=== PATIENT | male | born 1940 | race Caucasian/White ===

== ENCOUNTER 2018-06-11 13:37 | Outpatient (CLI) | payer MEDICARE ==
--- NOTE | 2018-06-11 19:32 | RAD ---
LEFT WRIST THREE VIEWS: Date: 06-11-18 FINDINGS: An old ununited fracture of the ulnar styloid was seen, but no acute fracture was evident. The distan ce between the scaphoid and lunate was excessive, suggesting scapholunate dissociation. Degenerative changes are seen between the distal pole of the sphenoid and trapezium, and to a lesser extent betwee n the trapezium and base of the first metacarpal. Arterial calcifications are present. IMPRESSION: 1. Scapholunate dissociation. 2. Old ununited ulnar styloid fracture. 3. 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 POS: HOME
--- NOTE | 2018-06-11 19:34 | RAD ---
LEFT HAND THREE VIEWS: Date: 06-11-18 FINDINGS: Degenerative changes between the scaphoid, trapezium, and first metacarpal are noted and detailed on the wrist dictation. The scapholunate dissociation is not as apparent on these views. Mild degenerati ve changes are seen in the second and third MCP joints without obvious erosions. There are some lesse r arthritic changes in the first MCP joint. No acute fractures are seen, only the old ulnar styloid f racture. IMPRESSION: 1. Degenerative changes along the scaphoid/trapezium/first metacarpal axis. 2. Degenerative changes in the first, second, and third MCP joints. POS: HOME
== END 2018-06-11 13:38 | disposition home or self-care (01) ==
LOC: BURRAD 13:37
PROVIDERS: ATTEND Family Medicine
DX: M25.532 Pain in left wrist (principal); M18.12 Unilateral primary osteoarthritis of first carpometacarpal joint, left hand; M19.042 Primary osteoarthritis, left hand; M19.032 Primary osteoarthritis, left wrist; S63.512A Sprain of carpal joint of left wrist, initial encounter; S52.612K Displaced fracture of left ulna styloid process, subsequent encounter for closed fracture with nonunion

== ENCOUNTER 2020-03-03 10:49 | Emergency (ER) | payer MEDICARE ==
[2020-03-03 11:22] LABS: #Eosinphils 0.1 thou/uL (0.0-0.7); #Monocytes 0.4 thou/uL (0.11-0.59); #Neutrophils 3.6 thou/uL (1.40-6.50); %Basophils 0.8 % (0.0-1.0); %Eosinophils 1.1 % (0.0-10.0); %Lymphocytes 19.9 % (21.0-51.0); %Neutrophils 70.2 % (42.0-75.0); Mean Corpuscular HGB CONC 32.1 g/dL (32.0-36.0); Mean Corpuscular Hemoglobin 30.4 pg (27.0-31.0); Mean Corpuscular Volume 94.8 fL (78.0-98.0); Mean Platelet Volume 7.8 fL (7.4-10.4); Platelet Count 164 thou/uL (130-400); RBC Distribution Width 12.2 % (11.5-14.5); Red Blood Cell (RBC) Count 3.63 mill/uL (4.70-6.10); White Blood Cell (WBC) Count 5.2 thou/uL (4.8-10.8)
[2020-03-03 11:30] LABS: INR-International Normal Ratio 3.7; Prothrombin Time 36.7 sec (12.0-14.7)
[2020-03-03 11:31] LABS: D-Dimer Test 0.41 *mcg/mL (0.27-0.43); PTT 64.3 sec (22.9-36.1)
[2020-03-03 11:38] LABS: ALT (SGPT) 20 U/L (8-55); AST (SGOT) 22 U/L (5-34); Albumin 4.1 g/dL (3.4-4.8); Alkaline Phosphatase 181 U/L (40-110); Anion Gap 15 mmol/L (10-20); BUN (Urea Nitrogen) 28 mg/dL (8.4-25.7); Bilirubin, Total 1.1 mg/dL (0.2-1.2); Calc. Creatinine Clearance 0 mL/min (70-130); Calcium 9.3 mg/dL (7.8-10.44); Carbon Dioxide 25 mmol/L (23-31); Chloride 102 mmol/L (98-107); Estimated GFR-MDRD 42; Globulin 2.9 g/dL (2.4-3.5); Glucose 113 mg/dL (83-110); Sodium 137 mmol/L (136-145)
[2020-03-03] MEDS ORDERED: Morphine 2 MG/ML SYRINGE ONE (11:42)
[2020-03-03] MEDS ORDERED: Ondansetron PF 4 MG/2 ML Vial ONE (11:43)
== END 2020-03-03 12:08 | disposition home or self-care (01) ==
LOC: BURERS 10:49
DX: S86.911A Strain of unspecified muscle(s) and tendon(s) at lower leg level, right leg, initial encounter (principal); I48.91 Unspecified atrial fibrillation; Z79.899 Other long term (current) drug therapy; X58.XXXA Exposure to other specified factors, initial encounter
CPT/HCPCS: 80053; 85025; 85379; 85610; 85730; 99283; J2270; J2405

== ENCOUNTER 2023-10-21 19:05 | Emergency (ER) | payer OTHER ==
[2023-10-21 19:58] LABS: #Lymphocytes 0.5 thou/uL (1.20-3.40); #Monocytes 0.1 thou/uL (0.11-0.59); #Neutrophils 4.1 thou/uL (1.40-6.50); %Basophils 0.3 % (0.0-1.0); %Eosinophils 0.2 % (0.0-10.0); %Lymphocytes 9.6 % (21.0-51.0); %Monocytes 2.7 % (0.0-10.0); %Neutrophils 87.2 % (42.0-75.0); Hematocrit 33.2 % (42.0-52.0); Hemoglobin 10.8 g/dL (14.0-18.0); Mean Corpuscular HGB CONC 32.4 g/dL (32.0-36.0); Mean Corpuscular Hemoglobin 30.1 pg (27.0-31.0); Mean Corpuscular Volume 92.9 fl (78.0-98.0); Mean Platelet Volume 7.3 fL (7.4-10.4); Platelet Count 112 10x3/uL (130-400); RBC Distribution Width 12.9 % (11.5-14.5); Red Blood Cell (RBC) Count 3.57 mill/uL (4.70-6.10); White Blood Cell (WBC) Count 4.7 10x3/uL (4.8-10.8)
[2023-10-21] MEDS ORDERED: Clindamycin/D5W 600 mg/50 ml Premix Bag ONE (20:07)
[2023-10-21 20:10] LABS: ALT (SGPT) 20 U/L (8-55); AST (SGOT) 21 U/L (5-34); Albumin 4.2 g/dL (3.4-4.8); Alkaline Phosphatase 155 U/L (40-110); Anion Gap 16 mmol/L (10-20); BUN (Urea Nitrogen) 39 mg/dL (8.4-25.7); Bilirubin, Total 1.3 mg/dL (0.2-1.2); Calc. Creatinine Clearance 0 mL/min (70-130); Calcium 9.1 mg/dL (7.8-10.44); Carbon Dioxide 25 mmol/L (23-31); Chloride 99 mmol/L (98-107); Estimated GFR 32; Globulin 2.6 g/dL (2.4-3.5); Glucose 105 mg/dL (83-110); Potassium 4.4 mmol/L (3.5-5.1); Protein, Total 6.8 g/dL (5.8-8.1); Sodium 136 mmol/L (136-145)
[2023-10-21 20:15] LABS: Platelet Adequacy Comment Appears Decreased
[2023-10-21 20:16] LABS: MDiff Complete? YES
[2023-10-21 21:03] LABS: Troponin I 0.022 ng/mL (< 0.028)
[2023-10-21 21:49] LABS: Influenza A by NAA Not Detected (NotDetected); Influenza B by NAA Not Detected (NotDetected); SARS-CoV-2 NAA Rapid Test Not Detected (NotDetected)
[2023-10-21 23:02] LABS: Bilirubin Negative (Negative); Blood, Urine Negative (Negative); Clarity Clear (Clear); Glucose, Urine (Dipstick) Negative (Negative); Ketone, Urine Negative (Negative); Leukocyte Negative (Negative); Nitrite Negative (Negative); Protein, Urine (Dipstick) Trace mg/dL (Neg-Trace); Urobilinogen 0.2 mg/dL (Less than 2)
[2023-10-21 23:13] LABS: Bacteria/HPF None Seen HPF (None Seen); CAUTI Indications for Culture Fever or rigors; RBC/HPF None Seen HPF (0-3); Squamous Epithelial None Seen HPF (0-3); WBC/HPF None Seen HPF (0-3)
[2023-10-21 23:14] LABS: Urine Culture Reflex No No
== END 2023-10-21 22:30 | disposition short-term general hospital (02) ==
LOC: BURERS 19:05
DX: L03.116 Cellulitis of left lower limb (principal); I48.91 Unspecified atrial fibrillation; I25.10 Atherosclerotic heart disease of native coronary artery without angina pectoris
CPT/HCPCS: 71045; 80053; 81001; 83605; 83880; 84484; 85025; 87086; 96365; J3490

== ENCOUNTER 2025-04-30 10:45 | Outpatient (CLI) | payer OTHER ==
[2025-04-30 11:12] LABS: INR-International Normal Ratio 2.1; Prothrombin Time 23.5 sec (12.0-14.7)
[2025-04-30 11:13] LABS: PTT 42.2 sec (22.9-36.1)
== END 2025-04-30 10:46 | disposition home or self-care (01) ==
LOC: BURLAB 10:45
PROVIDERS: ATTEND Family Medicine
DX: Z51.81 Encounter for therapeutic drug level monitoring (principal); Z79.01 Long term (current) use of anticoagulants
CPT/HCPCS: 36415; 85610; 85730

== ENCOUNTER 2025-05-24 10:37 | Emergency (ER) | payer OTHER | END 2025-05-24 12:10 | disposition home or self-care (01) | LOC: BURERS 10:37 | DX: S81.812A Laceration without foreign body, left lower leg, initial encounter (principal); I48.91 Unspecified atrial fibrillation; I25.10 Atherosclerotic heart disease of native coronary artery without angina pectoris; I50.9 Heart failure, unspecified; Z79.01 Long term (current) use of anticoagulants; W22.8XXA Striking against or struck by other objects, initial encounter | CPT/HCPCS: 99282 ==